=== PATIENT | male | born 1985 | race Caucasian/White ===

== ENCOUNTER 2024-02-16 13:33 | Inpatient (IN) | payer MEDICAID ==
[~2024-02-16] VITALS: Ht 180.3 cm; Wt 154.7 kg
[2024-02-16] MEDS: IV NS 0.9% 1,000 ML BAG IV ONE (14:00)
[2024-02-16] MEDS: MEROPENEM 1,000 MG in IV NS 0.9% 100 ML IV ONE (14:02)
[2024-02-16] MEDS: VANCOMYCIN 1 GM in IV D5W 250 ML IV ONE (15:15)
[2024-02-16 15:16] LABS: ALANINE AMINOTRANSFERASE 15 U/L (12-78); ALKALINE PHOSPHATASE 215 U/L (46-116); ASPARTATE AMINOTRANSFERASE 22 U/L (15-37); BILIRUBIN,DIRECT 0.3 mg/dL (0.0-0.2); BILIRUBIN,TOTAL 0.4 mg/dL (0.2-1.0); CALCIUM, SERUM 7.8 mg/dL (8.5-10.1); CARBON DIOXIDE 37 mmol/L (21-32); CHLORIDE 96 mmol/L (98-107); CREATININE 0.6 mg/dL (0.6-1.3); GLUCOSE 78 mg/dL (74-106); POTASSIUM 3.3 mmol/L (3.5-5.1); SODIUM SERUM 135 mmol/L (136-145); TOTAL PROTEIN, SERUM 5.5 g/dL (6.4-8.2); UREA NITROGEN, BLOOD 18 mg/dL (7-18)
[2024-02-16 15:20] LABS: ALBUMIN 1.1 g/dL (3.4-5.0)
[2024-02-16] MEDS ORDERED: EPOE1VIA6 SQ (15:26)
[2024-02-16] MEDS ORDERED: DIGO125T PO (15:26)
[2024-02-16] MEDS ORDERED: MIDO5TAB4 PO (15:26)
[2024-02-16] MEDS ORDERED: ALLO300T2 PO (15:26)
[2024-02-16] MEDS ORDERED: PANT40TA49 PO (15:26)
[2024-02-16] MEDS ORDERED: MAGN400T52 PO (15:26)
[2024-02-16] MEDS ORDERED: FOLI0.8T2 PO (15:26)
[2024-02-16] MEDS ORDERED: DOCU100C36 PO (15:26)
[2024-02-16] MEDS ORDERED: ASCO-352 PO (15:26)
[2024-02-16] MEDS ORDERED: ONDA-97 PO (15:26)
[2024-02-16] MEDS ORDERED: DILT180C66 PO (15:26)
[2024-02-16] MEDS ORDERED: FERR325T24 PO (15:26)
[2024-02-16] MEDS ORDERED: RISP1TAB7 PO (15:26)
[2024-02-16] MEDS ORDERED: FURO40TA5 PO (15:26)
[2024-02-16] MEDS ORDERED: CHOL200059 PO (15:26)
[2024-02-16] MEDS ORDERED: ACET325T53 PO (15:26)
[2024-02-16] MEDS ORDERED: COLC0.6C3 PO (15:26)
[2024-02-16 15:30] LABS: LACTIC ACID 0.8 mmol/L (0.4-2.0)
[2024-02-16 15:44] LABS: BASOPHILS % (AUTO) 0.3 % (0.0-2.0); EOSINOPHILS % (AUTO) 0.1 % (0.0-6.0); HEMATOCRIT 24 % (39-51); LYMPHOCYTES # (AUTO) 1.6 K/uL (0.8-4.8); LYMPHOCYTES % (AUTO) 13.1 % (20.0-44.0); MEAN CORPUSCULAR HEMOGLOBIN 24 PG (26.0-33.0); MEAN CORPUSCULAR HGB CONC 30 g/dl (31.0-36.0); MEAN CORPUSCULAR VOLUME 80 fL (80-96); MONOCYTES # (AUTO) 0.6 K/uL (0.1-1.30); MONOCYTES % (AUTO) 4.9 % (2.0-12.0); NEUTROPHILS # (AUTO) 10.2 K/uL (1.8-8.9); NEUTROPHILS % (AUTO) 81.6 % (43.0-81.0); PLATELET COUNT (AUTO) 376 K/uL (150-450); RED BLOOD CELL COUNT(AUTO) 2.98 MIL/uL (4.5-6.0); RED CELL DISTRIBUTION WIDTH 21.3 % (11.5-15.0); WHITE BLOOD COUNT (AUTO) 12.5 K/uL (4.3-11.0)
[2024-02-16 15:53] LABS: INR 1.56 (0.91-1.10); PARTIAL THROMBOPLASTIN TIME 31.6 SEC (24.3-34.3); PROTHROMBIN TIME 16.1 SECS (9.2-11.1)
[2024-02-16 16:43] LABS: HEMOGLOBIN 7.1 g/dL (13.5-17.5)
[2024-02-16 16:50] LABS: APPEARANCE,URINE CLEAR (CLEAR); COLOR,URINE YELLOW (YELLOW)
[2024-02-16 16:51] LABS: BILIRUBIN,URINE NEGATIVE (NEGATIVE); BLOOD, URINE NEGATIVE Ery/uL (NEGATIVE); KETONES,URINE NEGATIVE (NEGATIVE); LEUKOCYTE ESTERASE ,URINE NEGATIVE (NEGATIVE); NITRITE, URINE NEGATIVE (NEGATIVE); PROTEIN,URINE NEGATIVE (NEGATIVE); UGLUCOSE NEGATIVE (NEGATIVE); UROBILINOGEN,URINE 0.2 EU/dL (0.2)
[2024-02-16] MEDS ORDERED: MEROPENEM 500 MG in IV NS 0.9% 50 ML IV SCH (18:30)
[2024-02-16] MEDS ORDERED: ONDANSETRON HCL/PF 4 MG/2 ML VIAL IVP PRN (18:30)
[2024-02-16] MEDS ORDERED: ACETAMINOPHEN 325 MG TABLET PO PRN ×2 (18:30)
[2024-02-16] MEDS: POTASSIUM CHLORIDE 20 MEQ TAB.PRT.SR PO ONE ×2 (18:30→21:32)
[2024-02-16] MEDS ORDERED: Z GUARD REMEDY 4 OZ OINT TP PRN (18:30)
[2024-02-16] MEDS ORDERED: MAG HYDROX/AL HYDROX/SIMETH 30 ML UDC PO PRN (18:30)
[2024-02-16] MEDS ORDERED: ZOLPIDEM TARTRATE 5 MG TABLET PO PRN (18:30)
[2024-02-16] MEDS ORDERED: MAGNESIUM HYDROXIDE 30 ML UDC PO PRN (18:30)
[2024-02-16] MEDS ORDERED: ONDANSETRON 4 MG TAB.RAPDIS PO PRN (19:00)
[2024-02-16] MEDS: IV NS 0.9% 1,000 ML IV PRN (20:37)
[2024-02-16] MEDS: VANCOMYCIN HCL 1.25 GM in IV D5W 250 ML IV SCH (20:37)
[2024-02-16] MEDS: MAGNESIUM OXIDE 400 MG TABLET PO SCH (21:02)
[2024-02-16] MEDS: COLCHICINE 0.6 MG TABLET PO SCH (21:32)
[2024-02-16] MEDS: risperiDONE 1 MG TABLET PO SCH (21:32)
[2024-02-16] MEDS: DILTIAZEM HCL CD 180 MG PO SCH (21:33)
[2024-02-16] MEDS: MEROPENEM 1 G in IV NS 0.9% 100 ML IV SCH (22:11)
[2024-02-16] MEDS: Magnesium 1GM/D5W 100ML PREMIX PIGGYBACK IV ONE (22:11)
[2024-02-16 23:30] VITALS: BP 122/66; TEMP 97.7; O2SAT 95
[2024-02-17] VITALS (11 sets, daily range): BP systolic 100–115; BP diastolic 51–67; TEMP 97.7–98.2; O2SAT 97–100
[2024-02-17 02:11] LABS: BASOPHILS % (AUTO) 0.3 % (0.0-2.0); EOSINOPHILS % (AUTO) 0.4 % (0.0-6.0); HEMATOCRIT 22 % (39-51); LYMPHOCYTES # (AUTO) 1.8 K/uL (0.8-4.8); LYMPHOCYTES % (AUTO) 15.8 % (20.0-44.0); MEAN CORPUSCULAR HEMOGLOBIN 24 PG (26.0-33.0); MEAN CORPUSCULAR HGB CONC 30 g/dl (31.0-36.0); MEAN CORPUSCULAR VOLUME 80 fL (80-96); MONOCYTES # (AUTO) 0.7 K/uL (0.1-1.30); MONOCYTES % (AUTO) 6.3 % (2.0-12.0); NEUTROPHILS # (AUTO) 8.8 K/uL (1.8-8.9); NEUTROPHILS % (AUTO) 77.2 % (43.0-81.0); PLATELET COUNT (AUTO) 388 K/uL (150-450); RED BLOOD CELL COUNT(AUTO) 2.72 MIL/uL (4.5-6.0); RED CELL DISTRIBUTION WIDTH 21.9 % (11.5-15.0); WHITE BLOOD COUNT (AUTO) 11.4 K/uL (4.3-11.0)
[2024-02-17 02:14] LABS: HEMOGLOBIN 6.6 g/dL (13.5-17.5)
[2024-02-17 03:44] LABS: ANISOCYTOSIS 1+; HYPOCHROMASIA FEW; PLATELET ESTIMATE ADEQUATE; STOMATOCYTES 1+
[2024-02-17 03:45] LABS: BASOPHILS % (MANUAL) 0 % (0.0-2.0); EOSINOPHILS % (MANUAL) 0 % (0-4); LYMPHOCYTES % (MANUAL) 14 % (16-48); MONOCYTES % (MANUAL) 7 % (0-11.0); NEUTROPHILS % (MANUAL) 79 (42-76)
[2024-02-17] MEDS: PANTOPRAZOLE 40 MG TABLET.DR PO SCH (08:27)
[2024-02-17] MEDS: IPRATROPIUM NEB FS 0.5 MG/2.5 ML AMPUL.NEB NEB SCH (08:30)
[2024-02-17] MEDS: CHOLECALCIFEROL 1,000 UNIT TABLET (VIT D3) PO SCH (08:33)
[2024-02-17] MEDS: DOCUSATE SODIUM 100 MG CAPSULE PO SCH (08:33)
[2024-02-17] MEDS: ALLOPURINOL 100 MG TABLET PO SCH (08:33)
[2024-02-17] MEDS: VIT B CMPLX 3/FA/VIT C/BIOTIN 1 TAB TABLET PO SCH (08:34)
[2024-02-17] MEDS: FERROUS SULFATE (325 MG) 325 MG/TAB TABLET PO SCH (08:34)
[2024-02-17] MEDS: MIDODRINE HCL (5MG) 5 MG TABLET PO SCH (08:34)
[2024-02-17] MEDS: ASCORBIC ACID 500 MG TABLET PO SCH (08:34)
[2024-02-17 09:59] LABS: ABG BASE EXCESS 11.3 mmol/L (-2.0-3.0); ABG OXYGEN SATURATION 96.3 % (94.0-98.0); ABG PCO2 53.3 mmHg (35.0-48.0); ABG PH 7.453 (7.350-7.450); ABG PO2 107.6 mmHg (83.0-108.0); ABG TOTAL HEMOGLOBIN 7.7 G/dL (13.5-17.5); COHb 0.8 % (0.5-1.5); MetHb 0.3 % (0.0-1.5); O2Hb 95.2 % (94.0-97.0); SITE, ABG RIGHT HEEL
[2024-02-17 10:10] LABS: BASOPHILS # (AUTO) 0.1 K/uL (0.0-0.2); BASOPHILS % (AUTO) 0.5 % (0.0-2.0); EOSINOPHILS % (AUTO) 0.4 % (0.0-6.0); HEMATOCRIT 27 % (39-51); HEMOGLOBIN 8.2 g/dL (13.5-17.5); LYMPHOCYTES # (AUTO) 1.7 K/uL (0.8-4.8); LYMPHOCYTES % (AUTO) 14.7 % (20.0-44.0); MEAN CORPUSCULAR HEMOGLOBIN 25 PG (26.0-33.0); MEAN CORPUSCULAR HGB CONC 30 g/dl (31.0-36.0); MEAN CORPUSCULAR VOLUME 82 fL (80-96); MONOCYTES # (AUTO) 0.6 K/uL (0.1-1.30); MONOCYTES % (AUTO) 5.4 % (2.0-12.0); NEUTROPHILS # (AUTO) 8.9 K/uL (1.8-8.9); PLATELET COUNT (AUTO) 411 K/uL (150-450); RED CELL DISTRIBUTION WIDTH 21.8 % (11.5-15.0); WHITE BLOOD COUNT (AUTO) 11.3 K/uL (4.3-11.0)
[2024-02-17 10:16] LABS: CALCIUM, SERUM 7.6 mg/dL (8.5-10.1); CREATININE 0.7 mg/dL (0.6-1.3); MAGNESIUM 1.6 mg/dL (1.8-2.4); PHOSPHORUS 3.1 mg/dL (2.5-4.9)
[2024-02-17 10:26] LABS: THYROID STIMULATING HORMONE 3.77 uIU/mL (0.358-3.74)
[2024-02-17 10:31] LABS: POTASSIUM 3.8 mmol/L (3.5-5.1)
[2024-02-17 10:56] LABS: IRON, SERUM 24 ug/dl (50-175); TOTAL IRON BINDING CAPACITY 44 ug/dl (250-450)
[2024-02-17] MEDS: DIGOXIN 0.125 MG TABLET PO SCH (17:40)
[2024-02-17] MEDS: VANCOMYCIN HCL 1.25 GM in IV D5W 250 ML IV SCH (23:05)
[2024-02-18] VITALS (9 sets, daily range): BP systolic 110–121; BP diastolic 55–65; TEMP 97.5–98.1; O2SAT 96–100
[2024-02-18 07:44] LABS: BASOPHILS % (AUTO) 0.3 % (0.0-2.0); EOSINOPHILS # (AUTO) 0.1 K/uL (0.0-0.7); EOSINOPHILS % (AUTO) 0.6 % (0.0-6.0); HEMATOCRIT 27 % (39-51); HEMOGLOBIN 8.1 g/dL (13.5-17.5); LYMPHOCYTES # (AUTO) 2.2 K/uL (0.8-4.8); LYMPHOCYTES % (AUTO) 17.9 % (20.0-44.0); MEAN CORPUSCULAR HEMOGLOBIN 25 PG (26.0-33.0); MEAN CORPUSCULAR HGB CONC 30 g/dl (31.0-36.0); MEAN CORPUSCULAR VOLUME 82 fL (80-96); MONOCYTES # (AUTO) 0.8 K/uL (0.1-1.30); MONOCYTES % (AUTO) 6.8 % (2.0-12.0); NEUTROPHILS # (AUTO) 9.1 K/uL (1.8-8.9); NEUTROPHILS % (AUTO) 74.4 % (43.0-81.0); PLATELET COUNT (AUTO) 458 K/uL (150-450); RED CELL DISTRIBUTION WIDTH 21.8 % (11.5-15.0); WHITE BLOOD COUNT (AUTO) 12.2 K/uL (4.3-11.0)
[2024-02-18 07:51] LABS: POTASSIUM 3.8 mmol/L (3.5-5.1)
[2024-02-18 07:52] LABS: CALCIUM, SERUM 7.7 mg/dL (8.5-10.1); CREATININE 0.5 mg/dL (0.6-1.3); MAGNESIUM 1.5 mg/dL (1.8-2.4); PHOSPHORUS 3.2 mg/dL (2.5-4.9)
[2024-02-18] MEDS: MAGNESIUM OXIDE 400 MG TABLET PO ONE (11:27)
[2024-02-19] VITALS (8 sets, daily range): BP systolic 104–137; BP diastolic 52–72; TEMP 97.5–98.5; O2SAT 95–100
[2024-02-19 07:55] LABS: BASOPHILS % (AUTO) 0.4 % (0.0-2.0); EOSINOPHILS # (AUTO) 0.1 K/uL (0.0-0.7); EOSINOPHILS % (AUTO) 0.5 % (0.0-6.0); HEMATOCRIT 26 % (39-51); HEMOGLOBIN 7.8 g/dL (13.5-17.5); LYMPHOCYTES # (AUTO) 1.9 K/uL (0.8-4.8); LYMPHOCYTES % (AUTO) 16.9 % (20.0-44.0); MEAN CORPUSCULAR HEMOGLOBIN 25 PG (26.0-33.0); MEAN CORPUSCULAR HGB CONC 30 g/dl (31.0-36.0); MEAN CORPUSCULAR VOLUME 83 fL (80-96); MONOCYTES # (AUTO) 0.8 K/uL (0.1-1.30); MONOCYTES % (AUTO) 6.8 % (2.0-12.0); NEUTROPHILS # (AUTO) 8.4 K/uL (1.8-8.9); NEUTROPHILS % (AUTO) 75.4 % (43.0-81.0); PLATELET COUNT (AUTO) 450 K/uL (150-450); RED BLOOD CELL COUNT(AUTO) 3.11 MIL/uL (4.5-6.0); RED CELL DISTRIBUTION WIDTH 22.6 % (11.5-15.0); WHITE BLOOD COUNT (AUTO) 11.1 K/uL (4.3-11.0)
[2024-02-19 08:15] LABS: CALCIUM, SERUM 7.5 mg/dL (8.5-10.1); CREATININE 0.5 mg/dL (0.6-1.3); MAGNESIUM 1.4 mg/dL (1.8-2.4); PHOSPHORUS 3.3 mg/dL (2.5-4.9); POTASSIUM 3.8 mmol/L (3.5-5.1)
[2024-02-20 04:00] VITALS: BP 121/63; TEMP 98.6; O2SAT 97
[2024-02-20 06:19] LABS: OCCULT BLOOD STOOL NEGATIVE (NEGATIVE)
[2024-02-20 07:49] LABS: BASOPHILS % (AUTO) 0.3 % (0.0-2.0); EOSINOPHILS # (AUTO) 0.1 K/uL (0.0-0.7); EOSINOPHILS % (AUTO) 0.5 % (0.0-6.0); HEMATOCRIT 24 % (39-51); HEMOGLOBIN 7.3 g/dL (13.5-17.5); LYMPHOCYTES # (AUTO) 1.6 K/uL (0.8-4.8); LYMPHOCYTES % (AUTO) 12.8 % (20.0-44.0); MEAN CORPUSCULAR HEMOGLOBIN 25 PG (26.0-33.0); MEAN CORPUSCULAR HGB CONC 30 g/dl (31.0-36.0); MEAN CORPUSCULAR VOLUME 84 fL (80-96); MONOCYTES # (AUTO) 0.8 K/uL (0.1-1.30); MONOCYTES % (AUTO) 6.5 % (2.0-12.0); NEUTROPHILS # (AUTO) 10.2 K/uL (1.8-8.9); NEUTROPHILS % (AUTO) 79.9 % (43.0-81.0); PLATELET COUNT (AUTO) 450 K/uL (150-450); RED BLOOD CELL COUNT(AUTO) 2.91 MIL/uL (4.5-6.0); RED CELL DISTRIBUTION WIDTH 23.5 % (11.5-15.0); WHITE BLOOD COUNT (AUTO) 12.8 K/uL (4.3-11.0)
[2024-02-20 08:00] VITALS: BP 129/73; TEMP 97.3; O2SAT 100
[2024-02-20 08:08] VITALS: O2SAT 100
[2024-02-20 08:24] LABS: CALCIUM, SERUM 7.7 mg/dL (8.5-10.1); CREATININE 0.6 mg/dL (0.6-1.3); MAGNESIUM 1.4 mg/dL (1.8-2.4); PHOSPHORUS 3.2 mg/dL (2.5-4.9); POTASSIUM 4.1 mmol/L (3.5-5.1)
[2024-02-20] MEDS: MAGNESIUM OXIDE 400 MG TABLET PO ONE (10:39)
[2024-02-20 16:00] VITALS: BP 121/57; TEMP 97.9; O2SAT 98
[2024-02-20 20:00] VITALS: BP 119/59; TEMP 97.7; O2SAT 100
[2024-02-20] MEDS: CEFEPIME 2 GM in IV D5W 100 ML IV SCH (20:26)
[2024-02-20] MEDS: VANCOMYCIN 1 GM in IV D5W 250ml IV SCH ×2 (21:29→22:56)
[2024-02-21 04:00] VITALS: BP 125/72; TEMP 98.1; O2SAT 100
[2024-02-21 06:45] LABS: BASOPHILS % (AUTO) 0.3 % (0.0-2.0); EOSINOPHILS # (AUTO) 0.1 K/uL (0.0-0.7); EOSINOPHILS % (AUTO) 0.5 % (0.0-6.0); HEMATOCRIT 24 % (39-51); HEMOGLOBIN 7.3 g/dL (13.5-17.5); LYMPHOCYTES # (AUTO) 1.8 K/uL (0.8-4.8); LYMPHOCYTES % (AUTO) 16.2 % (20.0-44.0); MEAN CORPUSCULAR HEMOGLOBIN 25 PG (26.0-33.0); MEAN CORPUSCULAR HGB CONC 30 g/dl (31.0-36.0); MEAN CORPUSCULAR VOLUME 82 fL (80-96); MONOCYTES # (AUTO) 0.9 K/uL (0.1-1.30); MONOCYTES % (AUTO) 7.6 % (2.0-12.0); NEUTROPHILS # (AUTO) 8.5 K/uL (1.8-8.9); NEUTROPHILS % (AUTO) 75.4 % (43.0-81.0); PLATELET COUNT (AUTO) 405 K/uL (150-450); RED BLOOD CELL COUNT(AUTO) 2.93 MIL/uL (4.5-6.0); RED CELL DISTRIBUTION WIDTH 24.2 % (11.5-15.0); WHITE BLOOD COUNT (AUTO) 11.2 K/uL (4.3-11.0)
[2024-02-21 06:59] LABS: CALCIUM, SERUM 7.7 mg/dL (8.5-10.1); CREATININE 0.4 mg/dL (0.6-1.3); MAGNESIUM 1.4 mg/dL (1.8-2.4); PHOSPHORUS 3.9 mg/dL (2.5-4.9); POTASSIUM 4.4 mmol/L (3.5-5.1)
[2024-02-21 07:38] VITALS: O2SAT 98
[2024-02-21 08:00] VITALS: BP 125/67; TEMP 97.9; O2SAT 100
[2024-02-21] MEDS ORDERED: DOXY100C2 PO (10:51)
[2024-02-21] MEDS ORDERED: LEVO500T90 PO (10:51)
[2024-02-21] MEDS: MAGNESIUM OXIDE 400 MG TABLET PO SCH (11:38)
[2024-02-21 14:05] VITALS: BP 119/59
== END 2024-02-21 14:46 | DRG 720 ==
LOC: ER 13:36 → TELE1 18:19 → MEDSG1 02-18 09:55
PROVIDERS: ADMIT Student in an Organized Health Care Education/Training Program; ATTEND Student in an Organized Health Care Education/Training Program
PROC: 30233N1 Transfusion of Nonautologous Red Blood Cells into Peripheral Vein, Percutaneous Approach (ICD-10-PCS; principal; 2024-02-17)
DX: A41.9 Sepsis, unspecified organism (principal); E43 Unspecified severe protein-calorie malnutrition; J96.12 Chronic respiratory failure with hypercapnia; J96.11 Chronic respiratory failure with hypoxia; I48.91 Unspecified atrial fibrillation; E87.1 Hypo-osmolality and hyponatremia; D64.9 Anemia, unspecified; E87.6 Hypokalemia; F25.9 Schizoaffective disorder, unspecified; E66.2 Morbid (severe) obesity with alveolar hypoventilation; Z20.822 Contact with and (suspected) exposure to COVID-19; E78.5 Hyperlipidemia, unspecified; J44.9 Chronic obstructive pulmonary disease, unspecified; J98.11 Atelectasis; Z86.718 Personal history of other venous thrombosis and embolism; Z88.0 Allergy status to penicillin; Z68.42 Body mass index [BMI] 45.0-49.9, adult; M10.9 Gout, unspecified; L03.314 Cellulitis of groin; Z22.359 Carrier of Enterobacterales, unspecified
CPT/HCPCS: 36415; 71045-TC; 80048-TC; 80076-TC; 80202-TC; 82272-TC; 83540-TC; 83605-TC; 83735-TC; 84100-TC; 84443-TC; 84484-TC; 85025-TC; 85730-TC; 86850-TC; 87040-TC; 87081-TC; 87086-TC; 93970-TC; 94799-TC; A4223; A6253; G0378; J0692; J2185; J3370; J3475; J7030; J7050; J7060; P9016

== ENCOUNTER 2025-03-28 11:34 | Inpatient (IN) | payer MEDICAID, OTHER ==
[~2025-03-28] VITALS: Ht 175.3 cm; Wt 104.3 kg
[~2025-03-28 11:34] MED LIST: ACET325T53 PO; ALLO300T2 PO; ASCO-352 PO; CHOL200059 PO; COLC0.6C3 PO; DIGO125T PO; DILT180C66 PO; DOCU100C36 PO; DOXY100C2 PO; EPOE1VIA6 SQ; FERR325T24 PO; FOLI0.8T2 PO; FURO40TA5 PO; LEVO500T90 PO; MAGN400T52 PO; MIDO5TAB4 PO; ONDA-97 PO; PANT40TA49 PO; RISP1TAB7 PO
[2025-03-28 12:24] LABS: PLATELET COUNT (AUTO) 187 K/uL (150-450); RED BLOOD CELL COUNT(AUTO) 4.33 MIL/uL (4.5-6.0); RED CELL DISTRIBUTION WIDTH 13.7 % (11.5-15.0); WHITE BLOOD COUNT (AUTO) 3.8 K/uL (4.3-11.0)
[2025-03-28 12:32] LABS: CALCIUM, SERUM 9.0 mg/dL (8.5-10.1); CREATININE 1.3 mg/dL (0.6-1.3); SODIUM SERUM 137.0 mmol/L (136-145); UREA NITROGEN, BLOOD 22.0 mg/dL (7-18)
[2025-03-28 12:35] LABS: ASPARTATE AMINOTRANSFERASE 24.0 U/L (15-37); TOTAL PROTEIN, SERUM 7.4 g/dL (6.4-8.2)
[2025-03-28] MEDS ORDERED: IOHEXOL-300 100 ML VIAL IV ONE (12:53)
[2025-03-28] MEDS ORDERED: IV NS 0.9% 250 ML IV ONE (12:53)
[2025-03-28] MEDS: IV NS 0.9% 1,000 ML IV ONE (15:56)
[2025-03-28] MEDS ORDERED: DIGO250T PO (18:27)
[2025-03-28] MEDS ORDERED: METO25TA4 PO (18:27)
[2025-03-28] MEDS ORDERED: ALLO100T PO (18:27)
[2025-03-28] MEDS ORDERED: DIPH50CA37 PO (18:27)
[2025-03-28] MEDS ORDERED: CRAN425C6 PO (18:27)
[2025-03-28] MEDS ORDERED: POTA20TA83 PO (18:27)
[2025-03-28] MEDS ORDERED: FLUT16SP BNOSTRILS (18:27)
[2025-03-28] MEDS ORDERED: MAGN400O6 PO (18:27)
[2025-03-28] MEDS ORDERED: LACT1CAP69 PO (18:27)
[2025-03-28] MEDS ORDERED: POLY17PO4 PO (18:27)
[2025-03-28] MEDS ORDERED: SIME80TA15 PO (18:27)
[2025-03-28] MEDS ORDERED: FURO20TA4 PO (18:27)
[2025-03-28] MEDS ORDERED: ONDANSETRON HCL/PF 4 MG/2 ML VIAL IVP PRN (18:30)
[2025-03-28] MEDS ORDERED: Z GUARD REMEDY 4 OZ OINT TP PRN (18:30)
[2025-03-28] MEDS ORDERED: ZOLPIDEM TARTRATE 5 MG TABLET PO PRN (18:30)
[2025-03-28] MEDS ORDERED: MAG HYDROX/AL HYDROX/SIMETH 30 ML UDC PO PRN (18:30)
[2025-03-28] MEDS ORDERED: MAGNESIUM HYDROXIDE 30 ML UDC PO PRN (18:30)
[2025-03-28] MEDS: IV D5/0.45 NACL 1,000 ML IV PRN (19:45)
[2025-03-28 20:00] VITALS: BP 117/66; TEMP 97.7; O2SAT 100
[2025-03-29 04:00] VITALS: BP 113/70; TEMP 98.2; O2SAT 98
[2025-03-29 06:21] LABS: PLATELET COUNT (AUTO) 181 K/uL (150-450); RED BLOOD CELL COUNT(AUTO) 4.05 MIL/uL (4.5-6.0); RED CELL DISTRIBUTION WIDTH 13.2 % (11.5-15.0); WHITE BLOOD COUNT (AUTO) 3.2 K/uL (4.3-11.0)
[2025-03-29 06:37] LABS: CALCIUM, SERUM 8.8 mg/dL (8.5-10.1); CREATININE 1.2 mg/dL (0.6-1.3); PHOSPHORUS 3.8 mg/dL (2.5-4.9); SODIUM SERUM 140.0 mmol/L (136-145); UREA NITROGEN, BLOOD 17.0 mg/dL (7-18)
[2025-03-29 07:30] VITALS: BP 113/68; TEMP 97.7; O2SAT 99
[2025-03-29] MEDS: PANTOPRAZOLE 40 MG VIAL IV SCH (08:25)
[2025-03-29] MEDS ORDERED: DIATR MEGLU/DIATRIZOATE SODIUM 120 ML BOTTLE (GASTROGRAPHIN) ONE (09:26)
[2025-03-29 12:00] VITALS: BP 115/63; TEMP 97.7; O2SAT 99
[2025-03-29 20:47] VITALS: BP 118/72; TEMP 97.7; O2SAT 99
[2025-03-30 04:01] VITALS: BP 116/74; TEMP 97.7; O2SAT 99
[2025-03-30 06:21] LABS: PLATELET COUNT (AUTO) 182 K/uL (150-450); RED BLOOD CELL COUNT(AUTO) 4.11 MIL/uL (4.5-6.0); RED CELL DISTRIBUTION WIDTH 13.3 % (11.5-15.0); WHITE BLOOD COUNT (AUTO) 3.0 K/uL (4.3-11.0)
[2025-03-30 06:29] LABS: CALCIUM, SERUM 8.9 mg/dL (8.5-10.1); CREATININE 1.0 mg/dL (0.6-1.3); PHOSPHORUS 4.0 mg/dL (2.5-4.9); SODIUM SERUM 141.0 mmol/L (136-145); UREA NITROGEN, BLOOD 11.0 mg/dL (7-18)
[2025-03-30 08:00] VITALS: BP 123/79; TEMP 97.5; O2SAT 99
[2025-03-30] MEDS: METOPROLOL SUCCINATE 25 MG TAB.SR.24H PO SCH (10:30)
[2025-03-30] MEDS: ACETAMINOPHEN 325 MG TABLET PO PRN (11:24)
[2025-03-30] MEDS: MIDODRINE HCL (5MG) 5 MG TABLET PO SCH (11:28)
[2025-03-30] MEDS ORDERED: INFLUENZA VACCINE 2023-24 0.5 ML DISP.SYRIN IM ONE (12:00)
[2025-03-30] MEDS: FLU VACC 2025-26(6MOS UP) 0.5 ML SYRINGE IM ONE (12:26)
[2025-03-30] MEDS: DIGOXIN 0.25 MG TABLET PO SCH (13:00)
[2025-03-30 16:00] VITALS: BP 110/65; TEMP 97.8; O2SAT 99
[2025-03-30 16:57] VITALS: BP 111/63
[2025-03-30] MEDS ORDERED: MUPIROCIN OINT 2% 22 GM TUBE NS SCH (21:00)
[2025-03-31] MEDS ORDERED: PANTOPRAZOLE 40 MG/PACK PACK PO SCH (09:00)
== END 2025-03-30 19:35 | DRG 422 ==
LOC: ER 11:36 → MEDSG1 18:20
PROVIDERS: ADMIT Student in an Organized Health Care Education/Training Program; ATTEND Student in an Organized Health Care Education/Training Program
DX: E86.0 Dehydration (principal); E43 Unspecified severe protein-calorie malnutrition; D70.9 Neutropenia, unspecified; J96.12 Chronic respiratory failure with hypercapnia; E66.2 Morbid (severe) obesity with alveolar hypoventilation; R16.2 Hepatomegaly with splenomegaly, not elsewhere classified; F25.9 Schizoaffective disorder, unspecified; I48.91 Unspecified atrial fibrillation; J96.11 Chronic respiratory failure with hypoxia; D64.9 Anemia, unspecified; J44.9 Chronic obstructive pulmonary disease, unspecified; Z86.718 Personal history of other venous thrombosis and embolism; Z88.0 Allergy status to penicillin; Z93.3 Colostomy status; M10.9 Gout, unspecified; K40.20 Bilateral inguinal hernia, without obstruction or gangrene, not specified as recurrent; N18.9 Chronic kidney disease, unspecified; K59.00 Constipation, unspecified
CPT/HCPCS: 36415; 74250-TC; 80048-TC; 80076-TC; 83690-TC; 83735-TC; 84100-TC; 85025-TC; 87081-TC; A4223; G0378; J2470; J3490; J7030; J7050; Q9963; Q9967